=== PATIENT | female | born 1985 | race Caucasian/White ===

== ENCOUNTER → 2018-06-21 14:39 | Outpatient (CLI) | payer MEDICAID, SELFPAY ==
[2018-06-21 17:59] LABS: Chlamydia Trachomatis by PCR POSITIVE (Negative); Neisserai gonorrhoeae by PCR Negative (Negative); Probe Check PASS; Sample Adequacy Control PASS; Specimen Processing Control PASS
== END ==
PROVIDERS: Visit Provider Obstetrics & Gynecology
DX: Z11.3 Encounter for screening for infections with a predominantly sexual mode of transmission (principal)
CPT/HCPCS: 87491; 87591

== ENCOUNTER 2018-07-07 02:25 | Emergency (ER) | payer MEDICAID, SELFPAY ==
[2018-07-07 02:27] VITALS: BP 119/77; PULSE 93; RESP 17; TEMP 36.8; O2SAT 100; BMI 29.2
--- NOTE | 2018-07-07 02:53 | ED.VISSUMM ---
- ER Visit Summary Date of Service: 07/07/18 Chief Complaint: Numbness/tingling left arm History of Present Illness: The patient is a 33 F who was at work tonight developed left lateral neck pain followed by tingling in her left arm. She denies any arm weakness. Tingling is improving but her neck pain continues. Patient denies any recent injury. She is right-hand dominant. Physical Examination: Vital signs are unremarkable. Patient sitting upright in bed no acute distress. Head neck examination reveals no gross sign of trauma. She does have mild tenderness in the left lateral neck. She has good range of motion. No carotid bruits are noted. Heart is regular rate and rhythm. Lung sounds are clear. Abdomen is soft nontender. Left upper extremity examination reveals full range of motion. Normal strength is noted throughout. She has mild decreased sensation to light touch. Strong pulses are noted with good cap refill. Test Results: CBC and chemistry studies significant only for potassium slightly low at 3.4. Because the patient was pointing right along the vertebral artery CTA of the neck was done to ensure no sign of dissection. Normal arteries are noted. The C-spine itself is normal. Emergency Department Course and Treatment: Patient was given a dose of Toradol here along with IV fluids. She will be treated with anti-inflammatories along with Flexeril to help with muscle spasm. Patient will have to drive her car home from work and therefore is not given a dose of the muscle relaxer at this time. Treatment Plan: [] Disposition: Discharge Impression: Muscle spasm with cervical radiculopathy This note was generated with [employer] dictation software. It may contain incorrect words, spelling, and punctuation that were not noted in review of the chart prior to signing ED Disposition - Plan for ED Patient: Chief Complaint: Numb/Ting Referrals: Care Physician,No Primary [Primary Care Provider] -
[2018-07-07] MEDS: 0.9% Normal Saline 1,000 ML 150 ML IV (03:29)
[2018-07-07] MEDS: Ketorolac 30 MG/ML Syringe IV (03:34)
[2018-07-07 03:41] LABS: Absolute Lymphocyte Count 3.14 X10^3/ul (0.83-4.51); Absolute Neutrophil Count 4.1 X10^3/uL (2.0-7.7); Basophil# 0.02 X10^3/uL; Basophil% 0.2 % (0-1); Eosinophil# 0.19 X10^3/uL; Eosinophils% 2.4 % (0-5); Hematocrit 39.9 % (37-47); Hemoglobin 13.6 g/dl (12.0-15.0); Lymphocyte # 3.14 X10^3/ul (4.0); Lymphocyte % 38.9 % (19-41); Mean Corp Hgb Conc 34.1 g/gl (32-36); Mean Corpuscular Hgb 33.6 pg (27.0-32.0); Mean Corpuscular Volume 98.5 fL (81-99); Mean Platelet Vol. 9.6 fl (6.2-12.0); Monocyte# 0.58 X10^3/uL; Monocyte% 7.2 % (0-10); Neutrophil # 4.14 X10^3/uL (2.7-7.7); Neutrophil % 51.2 % (47-70); POSITIVE COUNT NO; POSITIVE DIFFERENTIAL NO; POSITIVE MORPHOLOGY NO; Platelet Count 165 K/mm3 (150-450); RBC Distribution Width CV 11.7 % (11.6-14.6); RBC Distribution Width SD 42.4 fl (35.1-43.9); Red Blood Count 4.05 M/mm3 (4.2-5.4); White Blood Count 8.1 K/mm3 (4.4-11.0)
[2018-07-07 03:52] LABS: Anion Gap 8 (5-15); BUN 13 mg/dL (7-18); BUN/Creat Ratio 17.4 RATIO (10-20); Calcium,Total 8.4 mg/dL (8.5-10.1); Chloride 108 mmol/L (98-107); Creatinine, Serum 0.75 mg/dL (0.55-1.02); EST Glomerular Filtration Rate 93 mL/min (>60); Est Glom Filt Rate - Afr Amer 113 mL/min (>60); Glucose 86 mg/dL (74-106); Potassium 3.4 mmol/L (3.5-5.1); Sodium Level 143 mmol/L (136-145)
--- NOTE | 2018-07-07 04:33 | ED.DEP ---
ED Disposition - Plan for ED Patient: Disposition: Home or Assisted Living Chief Complaint: Numb/Ting Instructions: ED Cervical Radiculopathy, ED Spasm Muscle Prescriptions: Naproxen [Naprosyn] 500 mg PO BID PRN PRN #20 tablet PRN Reason: Pain Cyclobenzaprine [Flexeril] 10 mg PO TID PRN #20 tablet PRN Reason: Muscle Spasm Referrals: Brown Spencer MD [STAFF PHYSICIAN] - As Needed
[2018-07-07 04:46] VITALS: RESP 14
== END 2018-07-07 05:19 | disposition home or self-care (01) ==
PROVIDERS: Emergency Provider Emergency Medicine
DX: M54.12 Radiculopathy, cervical region (principal); M62.838 Other muscle spasm; Z72.0 Tobacco use
CPT/HCPCS: 70498; 80048; 85025; 96361; 96374; 99285; J7030; Q9967

== ENCOUNTER → 2018-07-26 16:21 | Outpatient (CLI) | payer OTHER, MEDICAID, SELFPAY ==
[2018-07-26 20:47] LABS: Chlamydia Trachomatis by PCR Negative (Negative); Neisserai gonorrhoeae by PCR Negative (Negative); Probe Check PASS; Sample Adequacy Control PASS; Specimen Processing Control PASS
== END ==
PROVIDERS: Visit Provider Obstetrics & Gynecology
DX: Z86.19 Personal history of other infectious and parasitic diseases (principal)
CPT/HCPCS: 87491; 87591

== ENCOUNTER 2018-09-26 20:07 | Emergency (ER) | payer OTHER, MEDICAID, SELFPAY ==
[2018-09-26 20:10] VITALS: BP 112/72; PULSE 87; RESP 15; TEMP 36.4; BMI 31.1
--- NOTE | 2018-09-26 20:25 | CT_ITS ---
STUDY: CT ABDOMEN AND PELVIS WITHOUT CONTRAST REASON FOR EXAM: Female, 33 years old. Left lower quadrant pain. Frequent urination. RADIATION DOSAGE (If Supplied By Facility): CTDIvol = ( 9.36 ) mGy, DLP = ( 437.30 ) mGycm TECHNIQUE: Transaxial images were obtained from the dome of the diaphragm to the symphysis pubis without oral contrast, and without intravenous contrast. Sagittal and coronal images were reconstructed. Individualized dose optimization techniques were used for this CT. COMPARISON: None. FINDINGS: Evaluation of the abdominal viscera is limited in the absence of intravenous contrast. The visualized lung bases are clear. The visualized portions of the heart and pericardium are within normal limits. There are no calcified gallstones present. The liver demonstrates an unremarkable unenhanced appearance. The spleen is normal in size. The pancreas demonstrates an unremarkable unenhanced appearance. The adrenal glands are within normal limits. There are no renal or ureteral stones. There is no hydronephrosis. Normal visualized stomach. There is no bowel obstruction or inflammation. The appendix is visualized and appears normal. The aorta is normal in caliber. There is no abdominal or pelvic free air, free fluid, fluid collection or lymphadenopathy. There is an intrauterine device noted. However, the stem appears perpendicular to the long axis of the uterus and this may be malpositioned. However, this is not well evaluated by CT. Further evaluation with ultrasound is recommended. There are no destructive osseous lesions. CT/Abdomen/Pelvis without Cont IMPRESSION: No urinary calculi. No hydronephrosis. No bowel obstruction or inflammation. Normal appendix. Intrauterine device noted. However, the vertical stem appears perpendicular to the long axis of the uterus and this may be malpositioned. However, this is not well evaluated by CT. Further evaluation with ultrasound is recommended. Electronically Signed: Herberth Kirk, at 21:48 EST Tel , Service support ,
[2018-09-26] MEDS: Ketorolac 30 MG/ML Syringe IV (20:42)
[2018-09-26] MEDS: Morphine 4 MG/ML Syringe IV (20:42)
[2018-09-26] MEDS: 0.9% Normal Saline 1,000 ML 125 ML IV (20:42)
[2018-09-26] MEDS: Ondansetron 4 MG/2 ML Vial IV (20:42)
[2018-09-26 20:53] LABS: Bacteria 0 SEEN /hpf (None Seen); Mucous, Urine 0 SEEN /hpf (<or=2+); Red Blood Cells-Urine 0 SEEN /hpf (0-5); White Blood Cells 0 SEEN /hpf (0-5)
[2018-09-26 20:55] LABS: Absolute Lymphocyte Count 2.78 X10^3/ul (0.83-4.51); Absolute Neutrophil Count 3.6 X10^3/uL (2.0-7.7); Basophil# 0.04 X10^3/uL; Basophil% 0.6 % (0-1); Eosinophil# 0.16 X10^3/uL; Eosinophils% 2.3 % (0-5); Hematocrit 42.4 % (37-47); Hemoglobin 14.4 g/dl (12.0-15.0); Lymphocyte # 2.78 X10^3/ul (4.0); Lymphocyte % 39.4 % (19-41); Mean Corpuscular Hgb 33.8 pg (27.0-32.0); Mean Corpuscular Volume 99.5 fL (81-99); Mean Platelet Vol. 9.7 fl (6.2-12.0); Monocyte% 7.1 % (0-10); Neutrophil # 3.56 X10^3/uL (2.7-7.7); Neutrophil % 50.5 % (47-70); POSITIVE COUNT NO; POSITIVE DIFFERENTIAL NO; POSITIVE MORPHOLOGY NO; Platelet Count 196 K/mm3 (150-450); RBC Distribution Width CV 11.8 % (11.6-14.6); RBC Distribution Width SD 42.6 fl (35.1-43.9); Red Blood Count 4.26 M/mm3 (4.2-5.4); White Blood Count 7.1 K/mm3 (4.4-11.0)
[2018-09-26 21:02] LABS: Color, Urine Yellow (Yellow); Glucose, Dipstick Normal (Normal); Ketone-Dipstick Negative (Negative); Leukocyte Esterase-Dipstick Negative /ul (Negative); Nitrite-Dipstick Negative (Negative); Occult Blood-Urine 10 /ul (Negative); Protein-Dipstick Negative (Negative); Urine Bilirubin Dipstick Negative (Negative); Urine Clarity Clear (Clear); Urine Urobilinogen Normal (Normal)
[2018-09-26 21:11] LABS: Anion Gap 6 (5-15); BUN 11 mg/dL (7-18); BUN/Creat Ratio 17.8 RATIO (10-20); Calcium,Total 8.7 mg/dL (8.5-10.1); Chloride 105 mmol/L (98-107); Creatinine, Serum 0.62 mg/dL (0.55-1.02); EST Glomerular Filtration Rate 116 mL/min (>60); Est Glom Filt Rate - Afr Amer 141 mL/min (>60); Estimated Creatinine Clearance 95.57 ml/min; Glucose 90 mg/dL (74-106); Potassium 3.7 mmol/L (3.5-5.1); Sodium Level 138 mmol/L (136-145)
[2018-09-26 21:16] LABS: Squamous Epithelial Cells - UA 0-5 SEEN /hpf (5-10)
[2018-09-26 21:17] LABS: Pregnancy, Serum, hCG Quali. NEGATIVE Negative (0-9 Nonpreg)
[2018-09-26 21:59] VITALS: BP 135/78; PULSE 70; RESP 16; O2SAT 100
--- NOTE | 2018-09-26 22:03 | ED.DCSUM_ITS ---
- ER Visit Summary Date of Service: 09/26/18 Chief Complaint: [Abdominal pain] History of Present Illness: The patient is a 33 F [presents the emergency department complaint of abdominal pain that started around 3 AM. Patient states that she was seen at [facility] in [place] for this early this morning around 4 AM and we checked a urinalysis and examine her abdomen but had no imaging. Patient states that her pain eventually resolved and she was pain-free until about an hour ago before presentation to ER. Patient had sudden onset of pain once again to the left lower abdomen. Patient also has been having urinary frequency. She denies any vaginal bleeding. Her was last menstrual period was about 3-1/2 weeks ago. Patient has a IUD that was placed in June of this year. Patient denies any blood in her stool or black tarry stools. No history of kidney stones.] Physical Examination: [HEENT-PERRLA, EOMI. Cranial nerves II through XII grossly intact. TMs clear. Mucous membranes moist. No adenopathy. Cardiovascular-regular rate and rhythm without murmur or ectopy Lungs-clear to auscultation, chest wall stable without crepitus or subcu emphysema Abdomen-normoactive bowel sounds, soft. Patient has tenderness palpation over left lower quadrant with some guarding. There is no rebound, rigidity, or perineal signs. No masses palpated. Extremities-intact ?4, normal range of motion, normal pulses, atraumatic] Test Results: [CBC with differential obtained showed a white count of 7.1, hemoglobin 14, hematocrit 42, platelets 186. Chemistries unremarkable. Urinalysis normal. HCG was negative. CT scan abdomen pelvis without contrast s howed nothing acute.] Emergency Department Course and Treatment: [Patient was medicated initially with Toradol, morphine, and Zofran and her pain resolved] Treatment Plan: [Patient denies anything for pain for home] Disposition: [Discharged home in stable condition]. Patient advised to follow- up with her [employer] if her pain persists. Impression: [Abdominal pain-etiology uncertain] This note was generated with [employer] dictation software. It may contain incorrect words, spelling, and punctuation that were not noted in review of the chart prior to signing ED Disposition - Plan for ED Patient: Chief Complaint: Abd Pain Referrals: Care Physician,No Primary [Primary Care Provider] -
--- NOTE | 2018-09-26 22:03 | ED.DEP ---
ED Disposition - Plan for ED Patient: Chief Complaint: Abd Pain Instructions: ED Abdominal Pain Unkn Cause Referrals: Care Physician,No Primary [Primary Care Provider] - Kenya Sanders MD [STAFF PHYSICIAN] - 3-5 Days
== END 2018-09-26 22:18 | disposition home or self-care (01) ==
LOC: ED 21:40
PROVIDERS: Emergency Provider Emergency Medicine
DX: R10.32 Left lower quadrant pain (principal); Z72.0 Tobacco use
CPT/HCPCS: 74176; 80048; 81001; 84703; 85025; 96361; 96374; 96375; 99283; J7030; J2405

== ENCOUNTER 2019-12-29 19:51 | Emergency (ER) | payer MEDICAID, SELFPAY ==
[2019-12-29 19:52] VITALS: BP 128/90; PULSE 89; RESP 18; TEMP 37.2; O2SAT 98; BMI 37.8
--- NOTE | 2019-12-29 20:01 | ED.DCSUM_ITS ---
History of Present Illness Chief Complaint: Lower Extremity Injury Informant: Patient Onset: Today Context: Sudden Onset Timing: Continuous Current Severity: Moderate Maximum Severity: Moderate Narrative: The patient presents to the emergency department with right knee injury. She states that she injured her knee when she was in high school running cross- country. She dislocated her kneecap and was told that she would likely need surgery. She states she never followed up for surgery. Since that time, she is had some mild pain in her knee. She states today, she was getting out of her car, and felt something crack on the inside of her knee. Since then, she is had a difficult time bearing weight because of pain. It has not been clicking or locking. It has not been giving out. She has not taken anything for her pain. Prior similar symptoms: Yes Recent Illness/Hospitalization: No Past Medical History - Allergies and Home Meds Allergies/Adverse Reactions: Allergies No Known Allergies Allergy (Verified 12/29/19 19:54) Primary Care Physician: Care Physician,No Primary [Primary Care Provider] - Prior records reviewed: Yes Past Medical History: None Surgical History: no surgical history Smoking Status: Current every day smoker Review of Systems General: Denies: Chills, Fever, Sweats Eyes: Denies: Visual changes - bilaterally, Diplopia ENT: Denies: Rhinorrhea, Sore throat Cardiovascular: Denies: Chest pain, Palpitations Respiratory: Denies: Dyspnea, Cough, Dyspnea on exertion Gastrointestinal: Denies: Abdominal pain, Nausea, Vomiting, Diarrhea, Melena, Hematochezia Genitourinary: Denies: Dysuria, Hematuria, Frequency Musculoskeletal: Denies: Back pain, Extremity Pain Skin: Denies: Rash, Wounds Neurological: Denies: Headache, Weakness, Numbness Physical Exam Vital Signs/Narrative: Vital Signs Temp Pulse Resp BP Pulse Ox 12/29/19 19:52 98.9 F 89 18 128/90 H 98 Inital Vital Signs reviewed: Yes General: Well nourished, Well developed, No Acute Distress Head: Normocephalic, Atraumatic Eyes: Perrl, EOMI ENT: Moist mucous membranes, No rhinorrhea Neck: Supple, Nontender Cardiovascular: Regular rate, Regular rhythm, No murmurs Respiratory: No distress, CTA bilaterally, Chest nontender Abdomen: Soft, Nontender, Nondistended, Normal bowel sounds Back: Nontender, Normal Inspection Extremities: No edema, Tenderness - Mild tenderness over the medial tibial plateau. There is no gross laxity. Extension preserved. Normal pulses. Flexion is preserved. Skin: Normal color, No rash Neurological: Alert, Oriented x3, Cranial nerves II-XII grossly intact, Normal Strength, Normal Sensation Psychological: Normal affect, Normal Mood Diagnostic/Tx/Re-eval - Medical Decision Making The patient has no gross laxity of her knee. I do have some suspicion for me dial meniscus injury. I did obtain plain films which show no evidence of acute fracture dislocation. The cartilaginous space is well-maintained. The patient was placed in an Dawson wrap and given crutches. She will be started on anti- inflammatories. She will be given outpatient orthopedic follow-up. She is comfortable with this plan of care. Impression 1. Right knee sprain ED Disposition - Plan for ED Patient: Instructions: Knee Sprain Prescriptions: Naproxen [Naprosyn] 500 mg PO BID PRN #20 tab Prescription Printed Referrals: Herberth Waldron MD [STAFF PHYSICIAN] -
--- NOTE | 2019-12-29 20:11 | RAD_ITS ---
STUDY: X-RAY - RIGHT KNEE REASON FOR EXAM: Female, 34 years old. RIGHT KNEE PAIN TECHNIQUE: 4 view(s) of the knee. COMPARISON: April 08, 2011 FINDINGS: Normal visualized distal femur. Normal visualized proximal tibia and fibula. Normal proximal tibiofibular articulation. Mildly narrowed medial femorotibial compartment. Normal lateral femorotibial compartment. Normal patellofemoral articulation. Mild spurring of the upper pole of the patella The soft tissue structures are unremarkable. RAD/Knee 4 or More Views IMPRESSION: Mild degenerative changes. No evidence for acute fracture Electronically Signed: Rodolfo Montemayor MD at 20:49 EST , Service support ,
[2019-12-29] MEDS: HYDROcodone Bitartrate/Apap 5/325 Tablet PO (20:18)
== END 2019-12-29 20:46 | disposition home or self-care (01) ==
LOC: ED 20:09
PROVIDERS: Emergency Provider Emergency Medicine
DX: S83.91XA Sprain of unspecified site of right knee, initial encounter (principal); Z72.0 Tobacco use
CPT/HCPCS: 73564; 99284

== ENCOUNTER 2021-12-16 17:26 | Emergency (ER) | payer MEDICAID, SELFPAY ==
[2021-12-16 17:27] VITALS: BP 113/74; PULSE 113; RESP 16; TEMP 36.2; O2SAT 97; BMI 34.1
[2021-12-16] MEDS: Ketorolac 60 MG/2 ML Vial IM (19:16)
[2021-12-16] MEDS: morphine 8 MG/ML Syringe IM (19:16)
--- NOTE | 2021-12-16 19:16 | EDS_ITS ---
HPI History of Present Illness Chief Complaint: Back Informant: patient Narrative Narrative: 36-year-old female presenting to the emergency department with back pain patient states he has a history of back pain due to degenerative disc disease has been episodic. She spent a couple hours on Thursday shoveling snow that started Thursday did not really have any back pain just some generalized muscle soreness. States when she woke this morning she had pain mostly on the left low back rating into the buttock and down the leg. She states she is intermittently having tingling of her toes. She states that she has not had any muscle weakness. She denies any red flag history. She states that when she has had this in the past Flexeril has helped her recover in a few days. [facility] Medical History Cardiology follow-up encounter Gastric reflux High cholesterol History of hiatal hernia History of molar History of stress test Pneumonia due to COVID-19 virus Smoker Wears glasses Home Medications cyclobenzaprine 10 mg PO TID PRN #20 tablet 07/07/18 [Rx Last Taken Unknown] acetaminophen [Tylenol Arthritis] 650 mg PO PRN PRN 09/26/18 [History Last Taken Unknown] levonorgestrel [Mirena] 1 ea IY X1 09/26/18 [History Last Taken Unknown] naproxen 500 mg PO BID PRN PRN 12/13/21 [History Last Taken Unknown] omeprazole 40 mg PO DAILY 12/13/21 [History Last Taken 12/09/21] rosuvastatin [Crestor] 5 mg PO DAILY 12/13/21 [History Last Taken Unknown] cyclobenzaprine 10 mg PO TID PRN #15 tablet 12/16/21 [Rx Last Taken Unknown] oxycodone-acetaminophen 1 tab PO Q6H PRN PRN 3 Days #12 tablet 12/16/21 [Rx Last Taken Unknown] Allergy/AdvReac Type Severity Reaction Status Date / Time No Known Allergies Allergy Verified 12/16/21 17:27 Surgical History History of D&C History of esophagogastroduodenoscopy (EGD) Social History Smoking Status: Current every day smoker tobacco type: cigarettes ROS ROS ED Constitutional Constitutional ED: Denies chills, fever(s) or weight loss Eyes Eyes: Denies change in vision or diplopia ENT ENT ED: Denies ear pain, rhinorrhea or sore throat Cardiovascular Cardiovascular: Denies chest pain, orthopnea, palpitations or racing heartbeat Respiratory/Chest Respiratory/Chest: Denies cough, dyspnea or orthopnea Gastrointestinal Gastrointestinal: Denies abdominal pain, diarrhea, nausea or vomiting Genitourinary Genitourinary ED: Denies dysuria, hematuria or urinary frequency Musculoskeletal Musculoskeletal: Reports back pain; Denies arthralgias or myalgias Integumentary Denies abscess or rash Neurologic Neurologic: Reports paresthesias; Denies headache(s) or weakness Psychiatric Psychiatric: Denies anxiety, depression, suicidal ideation or suicidal thoughts Endocrine Endocrinology: Denies polydipsia, polyphagia or polyuria Allergic/Immunologic Allergic/Immunologic ED: Denies mouth swelling, tongue swelling or urticaria EXAM Physical Exam Const Vital Signs: 12/16/21 17:27 Temperature 97.2 F L Temperature Source Temporal Pulse Rate 113 H Respiratory Rate 16 Blood Pressure 113/74 Blood Pressure Mean 87 Pulse Ox 97 Oxygen Delivery Method Room Air Positive well nourished and well developed General Appearance ED: well developed HEENT Reports normocephalic, head/scalp atraumatic, TM's clear and moist mucous membranes Negative for trauma Tympanic Membrane ED: Yes TM's clear Eyes PERRL and EOMs intact bilaterally Neck no lymphadenopathy, supple and no JVD Resp normal respiratory effort and clear to auscultation bilaterally Cardio regular rate, regular rhythm and no murmurs GI normal to inspection, nondistended, normoactive bowel sounds and non-tender Palpation: soft Back/Spine no CVA tenderness and normal ROM Back/Spine Narrative: Tender to palpation over the lower left lumbar paraspinal musculature and SI joint on the left. No buttock tenderness. Deep tendon reflexes are intact. Sensation preserved. Extremity normal to inspection General Extremety ED: Negative for edema General Extremity: Negative for edema Neuro oriented x3 and CN's II-XII intact bilaterally Sensorium / Orientation: alert Motor Exam: strength 5/5 throughout Psych mental status grossly normal Mood & Affect: Negative for depressed or tearful Skin no rashes or lesions noted and no wounds MDM MDM MDM Narrative Medical decision making narrative: This appears to be a lumbar radiculopathy. I do not see any skin changes to suggest underlying infection. No red flag history and no direct trauma. I will write for the patient to receive an injection of Toradol and morphine. I will send her home on Percocet Flexeril. Recommend primary care follow-up in 1 week if not improving. Discharge Plan Triage Chief Complaint: Back ED Provider: Jasmeet Isbell Dx/Rx/DC Orders Clinical Impression: Sciatica of left side Instructions: ED Sciatica Prescriptions: New cyclobenzaprine [cyclobenzaprine] 10 MG tablet 10 mg PO TID PRN (Reason: Muscle Spasm) Qty: 15 RF: 0 oxycodone-acetaminophen [oxycodone-acetaminophen] 1 TABLET tablet 1 tab PO Q6H PRN PRN (Reason: Pain) 3 Days Qty: 12 RF: 0 No Action cyclobenzaprine 10 MG tablet 10 mg PO TID PRN (Reason: Muscle Spasm) Qty: 20 RF: 0 Mirena 1 EACH intrauterine device 1 ea IY X1 RF: 0 acetaminophen [Tylenol Arthritis Pain] 650 MG tablet extended release 650 mg PO PRN PRN (Reason: Pain) RF: 0 omeprazole 20 mg Tablet,Delayed Release (Dr/Ec) 40 mg PO DAILY RF: 0 naproxen 500 MG tablet 500 mg PO BID PRN PRN (Reason: Pain) RF: 0 rosuvastatin [Crestor] 5 mg Tablet 5 mg PO DAILY RF: 0 Primary Care Provider: Jca Williamson Referrals: Jac Williamson MD [Primary Care Provider] - 1 Week if not improving Disposition Disposition: Home, Self Care
[2021-12-16 19:21] VITALS: BP 122/71; PULSE 102; RESP 17; O2SAT 98
== END 2021-12-16 19:35 | disposition home or self-care (01) ==
LOC: ED 19:16
PROVIDERS: Emergency Provider Emergency Medicine; PCP Family Medicine; Visit Provider Emergency Medicine
DX: M54.32 Sciatica, left side (principal); F17.210 Nicotine dependence, cigarettes, uncomplicated; E78.00 Pure hypercholesterolemia, unspecified; Z86.16 Personal history of COVID-19; Z79.899 Other long term (current) drug therapy
CPT/HCPCS: 96372; 99282

== ENCOUNTER 2022-01-16 10:09 | Day surgery (SDC) | payer MEDICAID, SELFPAY ==
[2022-01-16 10:56] VITALS: BP 112/58; PULSE 81; RESP 16; TEMP 37.1; O2SAT 98; BMI 33.7
[2022-01-16] MEDS: Lactated Ringers 1,000 ML 15 ML IV (11:02)
--- NOTE | 2022-01-16 13:31 | HP.PCM_ITS ---
History and Physical Date of Admission: 01/16/22 HISTORY AND PHYSICAL ? Bridgette Funes 1985 ? REFERRING PHYSICIAN: Self ? CHIEF COMPLAINT: Consult (evaluate abdominal pain, hiatal hernia) ? HPI: The patient is a 36 year old female referred for endoscopy. Bridgette notes no history of colon complaints. ? The patient notes the following upper complaints: Bridgette notes abdominal pain. The pain occurs in the following locations: epigastric region, patient has had a CT scan of her abdomen which showed a small hiatal hernia gastric wall thickening some scattered colonic diverticulosis without evidence of diverticulitis. Also there was some undistended versus wall thickening throughout the colon. She however is not having any diarrhea.. . Bridgette notes heartburn. Bridgette notes dysphagia. Bridgette denies a history of ulcers/ peptic ulcer disease. ? Bridgette has not undergone prior endoscopy. ? PAST MEDICAL HISTORY PAST MEDICAL HISTORY Diagnosis Date ? COVID-19 02/2021 ? and pneumonia ? Diaphragmatic hernia without mention of obstruction or gangrene ? ? Hiatal hernia ? ? 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 Hypercholesterolemia ? ? Scoliosis ? ? ? PAST SURGICAL HISTORY PAST SURGICAL HISTORY Procedure Laterality Date ? D&C, DIAG AND/OR THERAPEUTIC ? 1999 ? Dilation & curettage x 2 ? EGD W/O BRSH SPECIMEN W/BX ? 04/24/11 ? ? ? CURRENT MEDICATIONS Current Outpatient Medications Medication Sig ? acetaminophen (TYLENOL) 325 mg cap Take by mouth. ? albuterol HFA (PROAIR HFA) 90 mcg/actuation inhaler Inhale 2 Puffs as instructed every 4 hours as needed. ? rosuvastatin (CRESTOR) 5 mg tablet Take 1 tablet by mouth daily at bedtime. ? omeprazole (PRILOSEC) 20 mg capsule Take 2 capsules by mouth daily before breakfast. 1/2 hr before meal. ? cyclobenzaprine (FLEXERIL) 10 mg tablet Cyclobenzaprine Hcl Active 10 MG THREE TIMES A DAY July 07, 2018 4:34am ? EPINEPHrine (EPIPEN) 0.3 mg/0.3 mL auto-injector Inject 0.3 mL intramuscularly as needed. ? meloxicam (MOBIC) 15 mg tablet Take 1 tablet by mouth once daily. Take with food. ? Cyclobenzap and Irritant Cntr Irr2 10 mg kit THREE TIMES A DAY PRN For Muscle Spasm ? ibuprofen (MOTRIN) 600 mg tablet Take 1 tablet by mouth every 6 hours as needed for Pain. ? levonorgestrel (MIRENA) 20 mcg/24 hr (5 years) IUD 1 Each by INTRAUTERINE route one time only. ? benzonatate (TESSALON PERLE) 100 mg capsule Take 1-2 capsules tid prn, no more than 6 in 24 hours. (Patient not taking: Reported on 11/04/2021 ) ? Current Facility-Administered Medications Medication Dose Route Frequency ? perflutren lipid microspheres 1.3 mL in NaCl (PF) 0.9% 10 mL injection (DEFINITY) INTRAVENOUS DIRECTED PRN ? sodium chloride 0.9 % (flush) 10 mL (BD POSIFLUSH) 10 mL INTRAVENOUS DIRECTED PRN ? ? ALLERGIES: Bees ? PERSONAL HISTORY: SOCIAL HISTORY Social History ? Tobacco Use ? Smoking status: Current Every Day Smoker ? ? Packs/day: 0.50 ? ? Types: Cigarettes ? Smokeless tobacco: Never Used Vaping Use ? Vaping Use: Some days Substance Use Topics ? Alcohol use: No ? Drug use: No ? FAMILY HISTORY: FAMILY HISTORY FAMILY HISTORY Problem Relation Age of Onset ? other (mitral valve prolapse) Mother ? ? Heart Mother ? ? COPD Mother ? ? Thyroid Mother ? ? Cancer Father ? ? lymphnodes --lymphoma ? Crohn's Disease Brother ? ? Heart Maternal Grandmother ? ? Diabetes Paternal Grandmother ? ? Breast Cancer Paternal Grandmother 80 ? Crohn's Disease Maternal cousin ? ? ? REVIEW OF SYMPTOMS: The review of systems data was entered by the nurse and reviewed by me ? Nursing Notes: Camilla Rhoades RN 11/04/2021 3:28 PM Signed REVIEW OF SYSTEMS: General: The patient NOTES fatigue, NOTES weight loss, denies weight ga in, denies feeling hot, and denies feelings of cold. Eyes: The patient denies glaucoma, denies eye injury/surgery, wears glasses or contacts. Ear/Nose/Throat: The patient NOTES allergies, denies hayfever, denies ear infections, and denies bloody noses. Cardiovascular: The patient NOTES chest pain, denies heart disease, denies high blood pressure,denies cardiac stent, denies prior heart attack, NOTES irregular heart beat, NOTES high cholesterol, denies poor circulation, denies heart failure, other cardiac issues, denies claudication, denies cold feet, denies peripheral arterial stent. Respiratory: The patient denies tuberculosis, denies pneumonia, denies frequent cough, denies pulmonary embolism, NOTES shortness of breath, and denies coughing up blood. Gastrointestinal: The patient denies difficulty swallowing, NOTES acid reflux, denies ulcers, denies vomiting, denies jaundice/hepatitis, denies gallbladder problems, denies black or tarry stools, denies hemorrhoids, denies bleeding from rectum, denies diverticulitis, denies constipation, denies diarrhea, denies loss of stool control, and NOTES hernias. Kidney/Bladder: The patient denies kidney stones, denies urine infections, and denies bloody urine. Skin: The patient denies a history of skin cancer, denies bleeding/changing moles, and denies a history of skin rash. Neurologic: The patient denies a history of epilepsy/convulsions, denies headaches, denies head/spinal injuries, and denies stroke/TIA. Psychiatric: The patient denies psychiatric medications, denies depressio n, and denies voices, denies substance abuse. Endocrine: The patient denies thyroid disorders, denies diabetes, and denies hormonal problems. Hematologic: The patient denies a history of bruising, denies bleeding, and denies anemia, denies blood clots. Infections: The patient denies a history of measles and mumps, denies rheumatic fever, and denies sexually transmitted diseases. Musculoskeletal: The patient NOTES back pain/injury, NOTES back problems, denies sciatica, denies knee/foot trouble, denies arthritis, or denies gout. ? ? When was patient's last Mammogram screening? N/A ? Last Colonoscopy: None ? Camilla Rhoades RN ? PHYSICAL EXAMINATION: ? General: The patient is 36 year old female, well nourished, well hydrated in no acute distress. The patient is oriented to time, place, and person. ? VITALS: Blood pressure 106/60, pulse 115, temperature 36.9 ?C (98.5 ?F), height 156.8 cm (5' 1.75), weight 80.2 kg (176 lb 12.8 oz), last menstrual period , SpO2 98 %. Body mass index is 32.6 kg/m?. ? HEENT: Normal cephalic, ataumatic, pupils are equally round, sclera are anicteric, mucous membranes are moist, oropharynx is clear. Neck has no masses, asymmetry or lymphadenopathy. Thyroid is unremarkable. ? Respiratory: Clear to auscultation and percussion. Normal respiratory excursion and pattern. ? Cardiac: Examination is regular rate and rhythm. ? Abdominal exam: Soft, nontender, with no palpable masses. No hepatosplenomegaly. No palpable hernias. ? Rectal exam: exam deferred ? Extremities: no clubbing, cyanosis or edema. No adenopathy. ? Other: ? LABORATORY VALUES: As Noted ? RADIOLOGIC STUDIES: As Noted ? Assessment IMPRESSION: Epigastric pain (primary encounter diagnosis) ? PLAN: I plan to perform upper endoscopy. We discussed the risks and benefits of the planned endoscopy. I have informed the patient that complications can occur including failure to complete the endoscopy and perforation. The patient had the opportunity to ask questions concerning the planned endoscopy. My staff has also explained the procedure to the patient in understandable terms and has given the patient printed material concerning the procedure. The patient freely consents to surgery. ? Diagnoses: (R10.13) Epigastric pain (primary encounter diagnosis) ? ? ? Return to Clinic: The patient is instructed to follow-up with me 1 week post operatively. ? COVID (Procedure Consent) Procedure Criteria ? Procedure Criteria: Yes Elective The surgeon/proceduralist and patient have discussed in detail the risk of exposure to and/or potential harm posed by the COVID-19 virus with having a surgery/procedure at this time versus the risk of? delaying the surgery/procedure. It is not possible to know either the risk of delaying the surgery or procedure or chance of getting an infection with perfect accuracy, but a joint decision was made between the patient and the surgeon/proceduralist ?to proceed at this time with the scheduled surgery/procedure as indicated on the consent form. ? ? Jasmeet Monroy III, MD Subjective: Patient is status post EGD completed at the [facility] [place] on 11/28/2021 she had some inflammation of her distal esophagus which did show some signs of eosinophilic esophagitis. It was negative for dysplasia. Her Z-line was at 30 cm from the incisors. ? Objective:Last menstrual period 11/15/2021. ? ? Abdomen is soft nontender ? Assessment: Eosinophilic esophagitis ? Plan: At this point I am going to obtain a EGD with 48-hour pH probe as well as esophageal manometry. Patient is interested in considering surgery to correct this problem. I have re-examined the patient. There are no clinical changes since date of exam.
--- NOTE | 2022-01-16 13:57 | OP.EGD_ITS ---
Patient Name: Bridgette Funes Procedure Date: 01/16/2022 1:44 PM Date of : 1985 Age: 37 Procedure: Upper GI endoscopy Indications: Epigastric abdominal pain, Gastro-esophageal reflux disease Providers: Jasmeet Monroy MD Referring MD: Jasmeet Monroy MD Medicines: See the Anesthesia note for documentation of the administered medications Patient Profile: This is a 37 year old female. Refer to note in patient chart for documentation of history and physical. Complications: No immediate complications. Estimated blood loss: None. Procedure: Pre-Anesthesia Assessment: - Prior to the procedure, a History and Physical was performed, and patient medications and allergies were reviewed. The patient's tolerance of previous anesthesia was also reviewed. The risks and benefits of the procedure and the sedation options and risks were discussed with the patient. All questions were answered, and informed consent was obtained. Prior Anticoagulants: The patient has taken no previous anticoagulant or antiplatelet agents. ASA Grade Assessment: II - A patient with mild systemic disease. After reviewing the risks and benefits, the patient was deemed in satisfactory condition to undergo the procedure. After obtaining informed consent, the endoscope was passed under direct vision. Throughout the procedure, the patient's blood pressure, pulse, and oxygen saturations were monitored continuously. The Endoscope was introduced through the mouth, and advanced to the second part of duodenum. The upper GI endoscopy was accomplished without difficulty. The patient tolerated the procedure well. Scope In: 1:47:08 PM Scope Out: 1:51:27 PM Total Procedure Duration Time 0 hours 4 minutes 19 seconds Findings: The Z-line was regular and was found 33 cm from the incisors. The CHIANG capsule with delivery system was introduced through the mouth and advanced into the esophagus, such that the CHIANG pH capsule was positioned 33 cm from the incisors, which was 6 cm proximal to the GE junction. The CHIANG pH capsule was then deployed and attached to the esophageal mucosa. The delivery system was then withdrawn. Endoscopy was utilized for probe placement and diagnostic evaluation. The entire examined stomach was normal. No biopsies or other specimens were collected for this exam. The examined duodenum was normal. No biopsies or other specimens were collected for this exam. Impression: - Z-line regular, 33 cm from the incisors. - Normal stomach. No specimens collected. - Normal examined duodenum. No specimens collected. - The CHIANG pH capsule was deployed. Recommendation: - Patient has a contact number available for emergencies. The signs and symptoms of potential delayed complications were discussed with the patient. Return to normal activities tomorrow. Written discharge instructions were provided to the patient. - Resume previous diet. - Continue present medications. - No repeat upper endoscopy. - Return to my office in 2 weeks. Procedure Code(s): --- Professional --- 65379, 59, Esophagogastroduodenoscopy, flexible, transoral; diagnostic, including collection of specimen(s) by brushing or washing, when performed (separate procedure) 62838, Esophagus, gastroesophageal reflux test; with mucosal attached telemetry pH electrode placement, recording, analysis and interpretation Diagnosis Code(s): --- Professional --- R10.13, Epigastric pain K21.9, Gastro-esophageal reflux disease without esophagitis CPT copyright 2017 [employer]. All rights reserved. The codes documented in this report are preliminary and upon consumer educator review may be revised to meet current compliance requirements. MD Jasmeet Glez MD 01/16/2022 1:57:21 PM This report has been signed electronically. Number of Addenda: 0 Note Initiated On: 01/16/2022 1:44 PM
--- NOTE | 2022-01-16 13:57 | OP.CCLET_ITS ---
01/16/2022 Jac Williamson [address] [place] [address] Re : Upper GI endoscopy procedure for Bridgette Funes Dear Dr. Williamson This procedure was performed on January. My impressions and recommendations are as follows: Impressions : - Z-line regular, 33 cm from the incisors. - Normal stomach. No specimens collected. - Normal examined duodenum. No specimens collected. - The CHIANG pH capsule was deployed. Recommendations : - Patient has a contact number available for emergencies. The signs and symptoms of potential delayed complications were discussed with the patient. Return to normal activities tomorrow. Written discharge instructions were provided to the patient. - Resume previous diet. - Continue present medications. - No repeat upper endoscopy. - Return to my office in 2 weeks. My findings are described in the full procedure note, which is enclosed. If I can be of further assistance, please feel free to contact me at Doctor phone number(s): , Work: . Sincerely, MD Jasmeet Glez MD 01/16/2022 1:57:21 PM This report has been signed electronically.
[2022-01-16 13:59] VITALS: BP 105/63; BP 112/58; PULSE 78; RESP 18; TEMP 36.1; O2SAT 98
[2022-01-16 14:00] VITALS: BP 104/61; BP 112/58; PULSE 80; RESP 18; O2SAT 100
[2022-01-16 14:05] VITALS: BP 106/66; BP 112/58; PULSE 74; RESP 18; O2SAT 100
[2022-01-16 14:10] VITALS: BP 111/65; BP 112/58; PULSE 76; RESP 18; TEMP 36.2; O2SAT 100
[2022-01-16 14:34] VITALS: BP 112/58
== END 2022-01-16 23:59 | disposition home or self-care (01) ==
LOC: EN 10:10 → AC 10:10
PROVIDERS: PCP Family Medicine; Referring Provider Surgery; Visit Provider Surgery
PROC: F00ZJWZ Instrumental Swallowing and Oral Function Assessment using Swallowing Equipment (ICD-10-PCS; CPT 43235; principal; 2022-01-16 11:25)
PROC: (CPT 43235; principal; 2022-01-16 12:25)
DX: R10.13 Epigastric pain (principal); E78.00 Pure hypercholesterolemia, unspecified; F17.210 Nicotine dependence, cigarettes, uncomplicated; K21.9 Gastro-esophageal reflux disease without esophagitis; Z86.16 Personal history of COVID-19; Z79.899 Other long term (current) drug therapy
CPT/HCPCS: 43235; 87426; C9803; J7120